=== PATIENT | male | born 1965 | race Caucasian/White ===

== ENCOUNTER 2017-07-05 07:34 | Emergency (ER) | payer BC ==
[~2017-07-05] VITALS: Ht 177.8 cm; Wt 109.6 kg
[~2017-07-05 07:34] MED LIST: ASPIR 8181 M1 PO; LIPITOR40 MG PO; PREDNISONE20 MG PO; ROBITUSSIN AC,T10 ML PO; ZESTRIL20 MG PO; ZITHROMAX Z-PA250 MG PO
[2017-07-05] MEDS ORDERED: TORADOL10 MG PO (11:07)
[2017-07-05 11:16] VITALS: BP 134/83
== END 2017-07-05 11:17 | disposition home or self-care (01) ==
LOC: EME 07:34
DX: M54.16 Radiculopathy, lumbar region (principal); M70.72 Other bursitis of hip, left hip; I10 Essential (primary) hypertension; E78.5 Hyperlipidemia, unspecified; F17.200 Nicotine dependence, unspecified, uncomplicated; Z88.0 Allergy status to penicillin
CPT/HCPCS: 72131; 73502; 99281; 99284; J1885